=== PATIENT | female | born 1980 | race Caucasian/White ===

== ENCOUNTER 2017-09-21 08:41 | Emergency (ER) | payer MEDICAID, OTHER ==
[2017-09-21 08:47] VITALS: O2SAT 100; BMI 30.1
[2017-09-21] MEDS ORDERED: Oxycodone/Acetaminophen 5/325 mg Tab PO STA (09:15)
[2017-09-21] MEDS ORDERED: Oxycodone/Acetaminophen 5/325 mg Tab ONE (09:24)
--- NOTE | 2017-09-21 09:28 | ED PDOC ---
HPI: Back Time Seen by Provider: 09/21/17 09:15 Chief Complaint (Nursing): Back Pain Chief Complaint (Provider): Back Pain History Per: Patient History/Exam Limitations: no limitations Onset/Duration Of Symptoms: Days (x14) Current Symptoms Are (Timing): Still Present Severity: Severe Pain Scale Rating Of: 10 Previous Symptoms: Back Pain Associated Symptoms: None Exacerbating Factor(s): Turning, Movement, Standing Additional Complaint(s): 37 year old female arrived to the ED with two weeks onset of right lower back pain with pain radiating to the right mid/lateral-gluteal thigh region. Patient states pain was initially tolerable and took over the counter tylenol/motrin but has felt minimal relief. Pain exponentially increased and caused the patient severe discomfort over the last few days, worse pain last night. When asked to rate her pain, patient states pain is greater than 10/10. Pain worsens with movement and change in position causing more discomfort. Additionally, patient complains of local mid-lateral right thigh region numbness. 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 PMD: Dr. Stew Herrera Past Medical History Reviewed: Historical Data, Nursing Documentation, Vital Signs Vital Signs: Last Vital Signs Temp 97 F L 09/21/17 08:46 Pulse 73 09/21/17 08:46 Resp BP 121/67 09/21/17 08:46 Pulse Ox 100 09/21/17 08:46 - Surgical History Surgical History: No Surg Hx - Family History Family History: States: No Known Family Hx - Living Arrangements Living Arrangements: Alone - Social History Current smoker - smoking cessation education provided: Yes Ex-Smoker (has not smoked in the last 12 months): No Alcohol: Occasional Drugs: Denies - Immunization History Hx Tetanus Toxoid Vaccination: No - Home Medications Home Medications: Ambulatory Orders Medication Instructions Recorded Cephalexin [Keflex] 500 mg PO Q6 #28 cap 11/16/14 Naproxen [Naprosyn] 500 mg PO BID PRN #30 tab 11/16/14 Ibuprofen [Motrin] 600 mg PO QID PRN #30 tab 09/21/17 diaZEpam [Valium] 5 mg PO TID PRN #10 tab 09/21/17 oxyCODONE/Acetaminophen [Percocet 1 tab PO TID PRN #10 tab 09/21/17 5/325 mg Tab] - Allergies Allergies/Adverse Reactions: Allergies Allergy/AdvReac Type Severity Reaction Status Date / Time No Known Allergies Allergy Verified 11/16/14 17:04 Review of Systems ROS Statement: Except As Marked, All Systems Reviewed And Found Negative Constitutional: Negative for: Fever, Chills, Sweats, Weakness ENT: Negative for: Ear Pain Cardiovascular: Negative for: Chest Pain, Palpitations Respiratory: Negative for: Shortness of Breath, SOB with Exertion Gastrointestinal: Negative for: Nausea, Vomiting, Abdominal Pain Genitourinary Female: Negative for: Incontinence, Vaginal Bleeding Musculoskeletal: Positive for: Back Pain (right lower back pain radiation to right leg), Leg Pain (pain in the right mid-ludial thigh region radiating from back pain; mid lateral right thigh region numbness) Skin: Negative for: Rash Neurological: Negative for: Weakness, Altered Mental Status, Dizziness Psych: Negative for: Anxiety, Depression, Psychosis Physical Exam - Reviewed Nursing Documentation Reviewed: Yes Vital Signs Reviewed: Yes (WNL) - Physical Exam Comments: General: alert/awake, GCS = 15, oriented x 3, resting in bed, uncomfortable, cooperative, interactive; mild-moderate distress due to pain Head: NC/AT EYE: PERRLA, EOMI, sclera anicteric, no nystagmus, no photophobia; visual field intact b/l Facial: WNL Oral: uvula/tongue are midline, no exudate/lesions, no drooling/stridor, no dysphonia; intact dentitions NECK: intact ROM, no midline tenderness, no nuchal rigidity, no meningeal signs ; no step off Chest: CTA b/l, no w/r/r; no tachypenia, no accessory muscle use noted Cardiac: +S1, +S2, no m/r/r, no tachycardia Abdominal: +BS, soft/nd/nt, well nourished patient; no masses/rebound/guarding/ rigidity; no duenas's sign, no mcburney's point tenderness Extremities: intact ROM, strength 5/5 grossly intact in all limbs, neurovasc intact b/l; + ambulatory; reflex +2/2; pt is favoring right leg when standing/ walking BACK: no step off, no midline tenderness, + right lower para-lumbar tenderness, NO crepitus, no gross deformities noted; Intact ROM; + B/L SLR, right SLR at 35- 40degrees, Left SLR at 50-60degrees SKIN: cap refill < 1 sec, no ulcerations, no petechiae, no rashes/lesions NEURO: CNII-XII WNL, no facial asymmetries, no slurr speech, oriented x 3 NIH stroke scale ~ 0 Psych: normal insight, normal affect; follows command with ease - ECG O2 Sat by Pulse Oximetry: 100 (RA) Pulse Ox Interpretation: Normal - Progress ED Course And Treament: PROCEDURE: Radiographs of the Lumbar Spine. HISTORY: no trauma, right lower back pain COMPARISON: No prior. FINDINGS: BONES: There is normal alignment of the lumbar vertebral bodies. There is normal lumbar lordosis. There is no acute fracture, spondylolysis or spondylolisthesis. Bone mineralization is normal. DISC SPACES: There is mild degenerative disc disease L5-S1 with mild reduced disc height and facet arthropathy. The remaining disc heights are maintained. OTHER FINDINGS: There are no pathologic soft tissue calcifications. Both sacroiliac joints are normal. IMPRESSION: No acute fracture, spondylolysis or spondylolisthesis. Mild degenerative disc disease at L5-S1. 10:30am - pt felt improved from the medicatoins provided pt states her pain is now 5-6/10 pt is resting in bed pt remained able to stand and ambulate on her own pt is made aware of her medical results pt is encouraged no heavy lifting, no prolonged standing/walking pt is encouraged proper lifting techniques pt will f/u as directed pt will be discharged home Re-evaluation Time: 10:35 Condition: Improved Medical Decision Making Medical Decision Making: Time: 0916 Impression: Muscoloskeletal origin Differential Diagnosis: I have consider all the differential diagnosis regarding pt's chief medical complaints/clinical findings, including but are not limited to: unlikely fracture, unlikely infectious cause; likely musculoskeletal pain Plan:(Include these two) - supportive care - observe -- Acetaminophen 1 tab PO -- Toradol 30 mg IM -- Valium 5 mg PO -- POC Urine -- LS Spine AP/LAT XR Scribe Attestation: Documented by Jose Elias Breen, acting as a scribe for Dr. Ty Fiore MD Provider Scribe Attestation: All medical record entries made by the Scribe were at my direction and personally dictated by me. I have reviewed the chart and agree that the record accurately reflects my personal performance of the history, physical exam, medical decision making, and the department course for this patient. I have also personally directed, reviewed, and agree with the discharge instructions and disposition. Disposition - Clinical Impression Clinical Impression: Lumbar spine strain, Back pain - Patient ED Disposition Is Patient to be Admitted: No Counseled Patient/Family Regarding: Studies Performed, Diagnosis, Need For Followup, Rx Given - Disposition Referrals: Sanjeev Hernández MD [Staff Provider] - [facility] [Outside] [facility] [Outside] [facility] [Outside] Disposition: Routine/Home Disposition Time: 10:48 Condition: STABLE Additional Instructions: Make sure to see your doctor in 1-2 days DRINK PLENTY OF FLUIDS take your medications as prescribed AVOID heavy weight bearing; prolonged standing/walking AVOID wearing high heels if your are lifting, lift with proper techniques (lift with your legs) RETURN TO ED IF worse pain, cant breath, persistent vomiting, high fever >101- 102 for hours, altered behavior, slurr speech, facial changes, focal weakness ( arm/leg or both), numbness/tingling, incontinence, unable to urinate, heavy/ persistent bleeding, passing out, chest pain, or other medical emergencies Prescriptions: diaZEpam [Valium] 5 mg PO TID PRN #10 tab PRN Reason: Muscle Spasm Ibuprofen [Motrin] 600 mg PO QID PRN #30 tab PRN Reason: Pain, Mild (1-3) oxyCODONE/Acetaminophen [Percocet 5/325 mg Tab] 1 tab PO TID PRN #10 tab PRN Reason: Pain, Moderate (4-7) Instructions: Low Back Pain in Adults, Back Exercises, Lumbar Muscle Strain (DC ) Forms: [employer] (Qatari) Print Language: BANGLADESHI
--- NOTE | 2017-09-21 09:51 | RAD ---
PROCEDURE: Radiographs of the Lumbar Spine. HISTORY: no trauma, right lower back pain COMPARISON: No prior. FINDINGS: BONES: There is normal alignment of the lumbar vertebral bodies. There is normal lumbar lordosis. There is no acute fracture, spondylolysis or spondylolisthesis. Bone mineralization is normal. DISC SPACES: There is mild degenerative disc disease L5-S1 with mild reduced disc height and facet arthropathy. The remaining disc heights are maintained. OTHER FINDINGS: There are no pathologic soft tissue calcifications. Both sacroiliac joints are normal. IMPRESSION: No acute fracture, spondylolysis or spondylolisthesis. Mild degenerative disc disease at L5-S1.
[2017-09-21 11:28] VITALS: BP 124/67; PULSE 76; RESP 18; TEMP 97.8
== END 2017-09-21 11:26 | disposition home or self-care (01) ==
LOC: H.ER 08:41
DX: S39.012A Strain of muscle, fascia and tendon of lower back, initial encounter (principal); Y92.9 Unspecified place or not applicable; M51.37 Other intervertebral disc degeneration, lumbosacral region
CPT/HCPCS: 72100; 81025; 96372; 99283; J1885